=== PATIENT | female | born 1940 | race Caucasian/White ===

== ENCOUNTER → 2016-06-15 | Outpatient (CLI) | payer OTHER, MEDICAID ==
[~2016-06-15] MED LIST: /NITR4TASL SL; /PRAV20TA PO; ASPI81TA85 PO; CIPR500T89 PO; CORE25TA PO; FLAG500T PO; KLOR20PO PO; LOSA100T36 PO; MAGN-46 PO; OMEP40CA2 PO; POTA20TA PO; TRAV04OPD OD; TYLE650T25 PO; VITA10006 PO; VITAMIN D 3 PO
--- NOTE | 2016-06-15 10:09 | REP ---
BILATERAL MAMMOGRAM: Bilateral mammography performed in the MLO and CC projections and compared to prior studies, the most recent of which is 10/08/2014. There is a history of left breast cancer at age 54. There is also a history of breast cancer in the mother. A new 1 cm ill-defined nodular opacity in the lateral aspect of the right breast. Fibroglandular pattern is otherwise unchanged. No other new mass is seen and there is no architectural distortion. No clustered microcalcifications are seen. IMPRESSION: ACR 0 incomplete. There appears to be a new ill-defined nodular density 1 cm in diameter in the lateral right breast. Recommend spot compression views and ultrasound to further evaluate. BI-RADS/ACR category 0 mammogram, incomplete. Additional imaging and/or prior images are needed before a final assessment can be assigned. This mammogram was interpreted with the aid of an FDA-approved computer-aided detection system. The patient states that she/he has not had a clinical breast exam in over a year. Patient letter M0.
--- NOTE | 2016-06-17 09:41 | DEXA ---
AP SPINE L1 - L4 1.035 -1.3 0.0 LT FEMUR TOTAL 0.751 -2.0 -0.6 RT FEMUR TOTAL 0.762 -1.9 -0.6 TOTAL BODY TOTAL OTHER DUAL FEMUR FRAX* ASSESSMENT Risk factors: History of fracture as an adult. 10 year probability of fracture Major osteoporotic fracture 18.4 % Hip fracture 4.0 % COMMENTS: There is low bone density of the spine and hips. FOLLOW-UP: Recommendation for the next bone density exam: 2 years. FCO
== END ==
LOC: M WHC 08:03
PROVIDERS: ATTEND Nurse Practitioner Adult Health
DX: Z12.31 Encounter for screening mammogram for malignant neoplasm of breast (principal); R92.8 Other abnormal and inconclusive findings on diagnostic imaging of breast; Z85.3 Personal history of malignant neoplasm of breast; Z80.3 Family history of malignant neoplasm of breast; M81.0 Age-related osteoporosis without current pathological fracture
CPT/HCPCS: 77080; G0202

== ENCOUNTER 2016-06-16 20:52 | Emergency (ER) | payer OTHER, MEDICAID ==
[2016-06-16] MEDS ORDERED: NORCO 5/325MG TABLET (BULK) As Ordered ONE (22:39)
--- NOTE | 2016-06-16 23:01 | EDDOCDS ---
Physician Documentation [facility] Name: Melany Molina Age: 75 yrs Sex: Female : 1940 Arrival Date: 06/16/2016 Time: 20:52 Bed 15 Private MD: Loida Tejada L Disposition: 06/16/16 22:30 Discharged to Home/Self Care. Impression: Fracture of lower end of radius. - Condition is Stable. - Medication Reconciliation, Local Pharmacy Hours form. - Follow up: Bruce Hodges; When: Tomorrow; Reason: Recheck today's complaints, To establish care. - Problem is new. - Symptoms have improved. Historical: - Allergies: No known drug Allergies; - Home Meds: 1. losartan 25 mg oral tab 1 tab once daily 2. aspirin 81 mg Oral TbEC 1 tab once daily 3. pravastatin Unknown oral 4. metoprolol tartrate 25 mg Oral tab 1 tab once daily - PMHx: Glaucoma; Cataracts; Hypercholesterolemia; Cardiomyopathy; Hypertension; Cancer, Breast - Left; - PSHx: Tonsillectomy; Hysterectomy; Lumpectomy- Left; lymph node removal; Cataract Surgery- Left; - Social history: Smoking status: Patient states former smoker of tobacco. No barriers to communication noted, The patient speaks fluent Malaysian, Speaks appropriately for age. - Family history: No immediate family members are acutely ill. - : The pt / caregiver states he / she is not on anticoagulants. Home medication list is obtained from the patient. - Exposure Risk Screening:: None identified. Vital Signs: 06/16 21:05 BP 118 / 72 RA Supine (auto/reg); Pulse 60 RA; Resp 18; Temp 99.2(O); Pulse Ox 92% on tk R/A; Weight 77.56 kg / 170.99 lbs; Height 5 ft. 3 in. (160.02 cm); Pain 6/10; 22:55 BP 159 / 80; Pulse 62; Resp 18; Temp 98.1(TE); Pulse Ox 95% on R/A; Pain 7/10; nn1 21:05 Body Mass Index 30.29 (77.56 kg, 160.02 cm) tk Procedures: 22:28 Fracture care/splinting: (Stabilizing Care) Splint applied to left arm using Orthoglass cs11 splint, applied by myself. Examined by me, post splint application: neurovascular intact, 2+ distal pulses palpable, brisk capillary refill noted, Patient tolerated well. 22:28 Fracture care/splinting: Reverse sugar tong splint fabricated and applied.. cs11 MDM: 21:17 Forearm (radius/ulna) Ordered. EDMS 22:31 HYDROcodone-acetaminophen 4 pack- 5 mg-325 mg 1 packets PO Per package directions; cs11 Dispense with patient. 1 po q4h prn for pain ordered. 22:51 Financial registration complete. zo Administered Medications: 22:54 Drug: HYDROcodone-acetaminophen 4 pack- 1 packets [hydrocodone 5 mg-acetaminophen 325 nn1 mg tablet (1 tabs)] {Co-Signature: kiley (Belen Ch RN).} Route: PO; Signatures: Dispatcher [employer] EDMS Shaan Eddy Craig, DO DO cs11 Emelina Ly RN RN nn1 Belen romero2 MTDD
--- NOTE | 2016-06-16 23:01 | EDDOCDS ---
Nurse's Notes [facility] Name: Melany Molina Age: 75 yrs Sex: Female : 1940 Arrival Date: 06/16/2016 Time: 20:52 Bed 15 Private MD: Loida Tejada L Diagnosis: Fracture of lower end of radius Presentation: 06/16 20:54 Presenting complaint: EMS states: patient was walking on side walk, fell. Obvious nn1 deformity left wrist. Patient given 4mg morphine and 4mg zofran. BS 127. IV 20G right wrist. Hx of left side breast cancer. Adult Sepsis Screening: The patient does not have new or worsening altered mentation. Patient's respiratory rate is less than 22. Systolic blood pressure is greater than 100. Patient has a qSOFA score of 0- Negative Sepsis Screen. Suicide/Homicide risk assessment- the patient denies having any suicidal and/or homicidal ideations and does not present with any other emotional, behavioral or mental health complaints. Status: Patient is not a information services manager or dependent. Transition of care: patient was not received from another setting of care. 20:54 Acuity: LAUREN Level 3 nn1 20:54 Method Of Arrival: Ambulance nn1 Triage Assessment: 21:09 General: Appears in no apparent distress, comfortable, Behavior is appropriate for age, nn1 cooperative. Pain: Location: left wrist Pain currently is 7 out of 10 on a pain scale. The patient is triaged at the bedside. See Assessment in Nurses Notes section of ED record. Neurological: Level of Consciousness is awake, alert, obeys commands, Oriented to person, place, time. Respiratory: Airway is patent Respiratory effort is even, unlabored, Respiratory pattern is regular, symmetrical. Derm: Skin is pink, warm & dry. Swollen area noted on lateral aspect of left wrist and medial aspect of left wrist. Musculoskeletal: Circulation, motion, and sensation intact Capillary refill < 3 seconds Range of motion limited in left wrist Bony deformity noted of left wrist Swelling present in left wrist. Injury Description: pt fell from standing. Historical: - Allergies: No known drug Allergies; - Home Meds: 1. losartan 25 mg oral tab 1 tab once daily 2. aspirin 81 mg Oral TbEC 1 tab once daily 3. pravastatin Unknown oral 4. metoprolol tartrate 25 mg Oral tab 1 tab once daily - PMHx: Glaucoma; Cataracts; Hypercholesterolemia; Cardiomyopathy; Hypertension; Cancer, Breast - Left; - PSHx: Tonsillectomy; Hysterectomy; Lumpectomy- Left; lymph node removal; Cataract Surgery- Left; - Social history: Smoking status: Patient states former smoker of tobacco. No barriers to communication noted, The patient speaks fluent Prydeinig, Speaks appropriately for age. - Family history: No immediate family members are acutely ill. - : The pt / caregiver states he / she is not on anticoagulants. Home medication list is obtained from the patient. - Exposure Risk Screening:: None identified. Screenin:12 Screening information is obtained from the patient. Fall risk: At risk due to prior nn1 history of falls. Assistance ADL's: requires no assistance with activities of daily living. Abuse/DV Screen: The patient / caregiver reports he/she is: not in a situation that causes fear, pain or injury. Nutritional screening: No deficits noted. Advance Directives: Currently, there is a health care proxy, Annalisa Emery- sister in law; Kushal Emery- brother. home support is adequate. Assessment: 21:11 General: See triage assessment. Patient reports having dinner at 1900. . nn1 21:54 General: Patient to radiology. . nn1 22:16 General: Appears in no apparent distress, comfortable, Behavior is appropriate for age, nn1 cooperative. Neurological: Level of Consciousness is awake, alert, obeys commands. Respiratory: Airway is patent Respiratory effort is even, unlabored. Derm: Skin is pink, warm & dry. 22:54 General: Appears in no apparent distress, comfortable, Behavior is appropriate for age, nn1 cooperative. Pain: Pain currently is 7 out of 10 on a pain scale. Neurological: Level of Consciousness is awake, alert. Respiratory: Airway is patent Respiratory effort is even, unlabored. Derm: Skin is pink, warm & dry. Swollen area noted on left wrist. Musculoskeletal: Bony deformity noted of left wrist. Vital Signs: 21:05 BP 118 / 72 RA Supine (auto/reg); Pulse 60 RA; Resp 18; Temp 99.2(O); Pulse Ox 92% on tk R/A; Weight 77.56 kg; Height 5 ft. 3 in. (160.02 cm); Pain 6/10; 22:55 BP 159 / 80; Pulse 62; Resp 18; Temp 98.1(TE); Pulse Ox 95% on R/A; Pain 7/10; nn1 21:05 Body Mass Index 30.29 (77.56 kg, 160.02 cm) tk Vitals: 20:54 Log In Time N/A - ambulance arrival. nn1 ED Course: 20:53 Patient visited by Modesta Sam PCA. tmm1 20:53 Loida Tejada is Private Physician. tmm1 20:53 Patient moved to 15 tmm1 20:56 Grover Cheng DO is Attending Physician. cs11 20:56 Patient visited by Grover Cheng DO. cs11 21:00 Triage Initiated nn1 21:07 Patient visited by Glenroy Hart. tk 21:28 Maintain field IV. Site clean & dry. Gauge & site: 20G right forearm. IV is patent. nn1 21:58 Patient visited by Emelina Ly RN. nn1 22:29 Bruce Hodges is Referral Physician. cs11 22:37 Assist provider with fracture care of left wrist Obvious deformity is noted. nn1 Circulation, motor and sensation is intact. Immoblized with preformed splint, Performed by Grover Cheng DO Post immobilization, circulation, motor and sensation remain intact. Patient tolerated well. Sling applied to left arm. Patient with positive distal sensation and brisk distal capillary refill after application. 22:56 The patient / caregiver is instructed regarding the plan of care and ED course. nn1 22:56 Discontinued IV bleeding controlled, pressure dressing applied, No redness/swelling at nn1 site. Administered Medications: 22:54 Drug: HYDROcodone-acetaminophen 4 pack- 1 packets [hydrocodone 5 mg-acetaminophen 325 nn1 mg tablet (1 tabs)] {Co-Signature: [email or web address] (Belen Ch RN).} Route: PO; Order Results: There are currently no results for this order. Outcome: 22:30 Discharge ordered by Provider. cs11 22:55 Discharge Assessment: Patient awake, alert and oriented x 3. No cognitive and/or nn1 functional deficits noted. Patient verbalized understanding of disposition instructions. patient administered narcotics - yes. Pt provided with safe discharge. The following High Risk Discharge criteria are identified: None. Discharged to home ambulatory. Condition: stable. No special radiology studies were completed. Property :Personal belongings accompany Pt. 23:01 Patient left the ED. nn1 Signatures: Grover Cheng DO DO cs11 McLear, Modesta, INTERVENTIONAL TECHNOLOGIST INTERVENTIONAL TECHNOLOGIST tmm1 Emelina LyRN RN nn1 Glenroy Hart RN kas2 Corrections: (The following items were deleted from the chart) 21:55 21:54 General: Patient to radiation. . nn1 nn1 MTDD
--- NOTE | 2016-06-19 00:01 | EDDOCDS ---
Physician Documentation [facility] Name: Melany Molina Age: 75 yrs Sex: Female : 1940 Arrival Date: 06/16/2016 Time: 20:52 Bed 15 Private MD: Loida Tejada L Disposition: 06/16/16 22:30 Discharged to Home/Self Care. Impression: Fracture of lower end of radius. - Condition is Stable. - Medication Reconciliation, Local Pharmacy Hours form. - Follow up: Bruce Hodges; When: Tomorrow; Reason: Recheck today's complaints, To establish care. - Problem is new. - Symptoms have improved. Historical: - Allergies: No known drug Allergies; - Home Meds: 1. losartan 25 mg oral tab 1 tab once daily 2. aspirin 81 mg Oral TbEC 1 tab once daily 3. pravastatin Unknown oral 4. metoprolol tartrate 25 mg Oral tab 1 tab once daily - PMHx: Glaucoma; Cataracts; Hypercholesterolemia; Cardiomyopathy; Hypertension; Cancer, Breast - Left; - PSHx: Tonsillectomy; Hysterectomy; Lumpectomy- Left; lymph node removal; Cataract Surgery- Left; - Social history: Smoking status: Patient states former smoker of tobacco. No barriers to communication noted, The patient speaks fluent Salvadorean, Speaks appropriately for age. - Family history: No immediate family members are acutely ill. - : The pt / caregiver states he / she is not on anticoagulants. Home medication list is obtained from the patient. - Exposure Risk Screening:: None identified. Vital Signs: 06/16 21:05 BP 118 / 72 RA Supine (auto/reg); Pulse 60 RA; Resp 18; Temp 99.2(O); Pulse Ox 92% on tk R/A; Weight 77.56 kg / 170.99 lbs; Height 5 ft. 3 in. (160.02 cm); Pain 6/10; 22:55 BP 159 / 80; Pulse 62; Resp 18; Temp 98.1(TE); Pulse Ox 95% on R/A; Pain 7/10; nn1 21:05 Body Mass Index 30.29 (77.56 kg, 160.02 cm) tk Procedures: 22:28 Fracture care/splinting: (Stabilizing Care) Splint applied to left arm using Orthoglass cs11 splint, applied by myself. Examined by me, post splint application: neurovascular intact, 2+ distal pulses palpable, brisk capillary refill noted, Patient tolerated well. 22:28 Fracture care/splinting: Reverse sugar tong splint fabricated and applied.. cs11 MDM: 21:17 Forearm (radius/ulna) Ordered. EDMS 22:31 HYDROcodone-acetaminophen 4 pack- 5 mg-325 mg 1 packets PO Per package directions; cs11 Dispense with patient. 1 po q4h prn for pain ordered. 22:51 Financial registration complete. zo 23:36 [facility] Payment Agreement was scanned into [employer] and attached to record. zo 06/17 06:59 T-Sheet-- Draft Copy was scanned into [employer] and attached to record. gb Administered Medications: 06/16 22:54 Drug: HYDROcodone-acetaminophen 4 pack- 1 packets [hydrocodone 5 mg-acetaminophen 325 nn1 mg tablet (1 tabs)] {Co-Signature: [email or web address] (Belen Ch RN).} Route: PO; Signatures: Dispatcher [employer] EDMS Yuridia Keller, Reg Reg gb Surjit, Grover Brewer, DO cs11 Emelina Ly RN RN nn1 Belen Ch RN kas2 The chart was reviewed and I authenticate all verbal orders and agree with the evaluation and treatment provided.Attachments: 23:36 [facility] Payment Agreement zo 06/17 06:59 T-Sheet-- Draft Copy gb Chart Complete MTDD
--- NOTE | 2016-06-19 00:01 | EDDOCDS ---
Physician Documentation [facility] Name: Melany Molina Age: 75 yrs Sex: Female : 1940 Arrival Date: 06/16/2016 Time: 20:52 Bed 15 Private MD: Loida Tejada L Disposition: 06/16/16 22:30 Discharged to Home/Self Care. Impression: Fracture of lower end of radius. - Condition is Stable. - Medication Reconciliation, Local Pharmacy Hours form. - Follow up: Bruce Hodges; When: Tomorrow; Reason: Recheck today's complaints, To establish care. - Problem is new. - Symptoms have improved. Historical: - Allergies: No known drug Allergies; - Home Meds: 1. losartan 25 mg oral tab 1 tab once daily 2. aspirin 81 mg Oral TbEC 1 tab once daily 3. pravastatin Unknown oral 4. metoprolol tartrate 25 mg Oral tab 1 tab once daily - PMHx: Glaucoma; Cataracts; Hypercholesterolemia; Cardiomyopathy; Hypertension; Cancer, Breast - Left; - PSHx: Tonsillectomy; Hysterectomy; Lumpectomy- Left; lymph node removal; Cataract Surgery- Left; - Social history: Smoking status: Patient states former smoker of tobacco. No barriers to communication noted, The patient speaks fluent Maltese, Speaks appropriately for age. - Family history: No immediate family members are acutely ill. - : The pt / caregiver states he / she is not on anticoagulants. Home medication list is obtained from the patient. - Exposure Risk Screening:: None identified. Vital Signs: 06/16 21:05 BP 118 / 72 RA Supine (auto/reg); Pulse 60 RA; Resp 18; Temp 99.2(O); Pulse Ox 92% on tk R/A; Weight 77.56 kg / 170.99 lbs; Height 5 ft. 3 in. (160.02 cm); Pain 6/10; 22:55 BP 159 / 80; Pulse 62; Resp 18; Temp 98.1(TE); Pulse Ox 95% on R/A; Pain 7/10; nn1 21:05 Body Mass Index 30.29 (77.56 kg, 160.02 cm) tk Procedures: 22:28 Fracture care/splinting: (Stabilizing Care) Splint applied to left arm using Orthoglass cs11 splint, applied by myself. Examined by me, post splint application: neurovascular intact, 2+ distal pulses palpable, brisk capillary refill noted, Patient tolerated well. 22:28 Fracture care/splinting: Reverse sugar tong splint fabricated and applied.. cs11 MDM: 21:17 Forearm (radius/ulna) Ordered. EDMS 22:31 HYDROcodone-acetaminophen 4 pack- 5 mg-325 mg 1 packets PO Per package directions; cs11 Dispense with patient. 1 po q4h prn for pain ordered. 22:51 Financial registration complete. zo 23:36 [facility] Payment Agreement was scanned into [employer] and attached to record. zo 06/17 06:59 T-Sheet-- Draft Copy was scanned into [employer] and attached to record. gb Administered Medications: 06/16 22:54 Drug: HYDROcodone-acetaminophen 4 pack- 1 packets [hydrocodone 5 mg-acetaminophen 325 nn1 mg tablet (1 tabs)] {Co-Signature: [email or web address] (Belen Ch RN).} Route: PO; Signatures: Dispatcher [employer] EDMS Yuridia Keller, Reg Reg gb Surjit, Grover Brewer, DO cs11 Emelina Ly RN RN nn1 Belen Ch RN kas2 The chart was reviewed and I authenticate all verbal orders and agree with the evaluation and treatment provided.Attachments: 23:36 [facility] Payment Agreement zo 06/17 06:59 T-Sheet-- Draft Copy gb Chart Complete MTDD
--- NOTE | 2016-06-19 00:01 | EDDOCDS ---
Nurse's Notes [facility] Name: Melany Molina Age: 75 yrs Sex: Female : 1940 Arrival Date: 06/16/2016 Time: 20:52 Bed 15 Private MD: Loida Tejada L Diagnosis: Fracture of lower end of radius Presentation: 06/16 20:54 Presenting complaint: EMS states: patient was walking on side walk, fell. Obvious nn1 deformity left wrist. Patient given 4mg morphine and 4mg zofran. BS 127. IV 20G right wrist. Hx of left side breast cancer. Adult Sepsis Screening: The patient does not have new or worsening altered mentation. Patient's respiratory rate is less than 22. Systolic blood pressure is greater than 100. Patient has a qSOFA score of 0- Negative Sepsis Screen. Suicide/Homicide risk assessment- the patient denies having any suicidal and/or homicidal ideations and does not present with any other emotional, behavioral or mental health complaints. Status: Patient is not a food service ambassador or dependent. Transition of care: patient was not received from another setting of care. 20:54 Acuity: LAUREN Level 3 nn1 20:54 Method Of Arrival: Ambulance nn1 Triage Assessment: 21:09 General: Appears in no apparent distress, comfortable, Behavior is appropriate for age, nn1 cooperative. Pain: Location: left wrist Pain currently is 7 out of 10 on a pain scale. The patient is triaged at the bedside. See Assessment in Nurses Notes section of ED record. Neurological: Level of Consciousness is awake, alert, obeys commands, Oriented to person, place, time. Respiratory: Airway is patent Respiratory effort is even, unlabored, Respiratory pattern is regular, symmetrical. Derm: Skin is pink, warm & dry. Swollen area noted on lateral aspect of left wrist and medial aspect of left wrist. Musculoskeletal: Circulation, motion, and sensation intact Capillary refill < 3 seconds Range of motion limited in left wrist Bony deformity noted of left wrist Swelling present in left wrist. Injury Description: pt fell from standing. Historical: - Allergies: No known drug Allergies; - Home Meds: 1. losartan 25 mg oral tab 1 tab once daily 2. aspirin 81 mg Oral TbEC 1 tab once daily 3. pravastatin Unknown oral 4. metoprolol tartrate 25 mg Oral tab 1 tab once daily - PMHx: Glaucoma; Cataracts; Hypercholesterolemia; Cardiomyopathy; Hypertension; Cancer, Breast - Left; - PSHx: Tonsillectomy; Hysterectomy; Lumpectomy- Left; lymph node removal; Cataract Surgery- Left; - Social history: Smoking status: Patient states former smoker of tobacco. No barriers to communication noted, The patient speaks fluent Malaysian, Speaks appropriately for age. - Family history: No immediate family members are acutely ill. - : The pt / caregiver states he / she is not on anticoagulants. Home medication list is obtained from the patient. - Exposure Risk Screening:: None identified. Screenin:12 Screening information is obtained from the patient. Fall risk: At risk due to prior nn1 history of falls. Assistance ADL's: requires no assistance with activities of daily living. Abuse/DV Screen: The patient / caregiver reports he/she is: not in a situation that causes fear, pain or injury. Nutritional screening: No deficits noted. Advance Directives: Currently, there is a health care proxy, Annalisa Emery- sister in law; Kushal Emery- brother. home support is adequate. Assessment: 21:11 General: See triage assessment. Patient reports having dinner at 1900. . nn1 21:54 General: Patient to radiology. . nn1 22:16 General: Appears in no apparent distress, comfortable, Behavior is appropriate for age, nn1 cooperative. Neurological: Level of Consciousness is awake, alert, obeys commands. Respiratory: Airway is patent Respiratory effort is even, unlabored. Derm: Skin is pink, warm & dry. 22:54 General: Appears in no apparent distress, comfortable, Behavior is appropriate for age, nn1 cooperative. Pain: Pain currently is 7 out of 10 on a pain scale. Neurological: Level of Consciousness is awake, alert. Respiratory: Airway is patent Respiratory effort is even, unlabored. Derm: Skin is pink, warm & dry. Swollen area noted on left wrist. Musculoskeletal: Bony deformity noted of left wrist. Vital Signs: 21:05 BP 118 / 72 RA Supine (auto/reg); Pulse 60 RA; Resp 18; Temp 99.2(O); Pulse Ox 92% on tk R/A; Weight 77.56 kg; Height 5 ft. 3 in. (160.02 cm); Pain 6/10; 22:55 BP 159 / 80; Pulse 62; Resp 18; Temp 98.1(TE); Pulse Ox 95% on R/A; Pain 7/10; nn1 21:05 Body Mass Index 30.29 (77.56 kg, 160.02 cm) tk Vitals: 20:54 Log In Time N/A - ambulance arrival. nn1 ED Course: 20:53 Patient visited by Modesta Sam PCA. tmm1 20:53 Loida Tejada is Private Physician. tmm1 20:53 Patient moved to 15 tmm1 20:56 Grover Cheng DO is Attending Physician. cs11 20:56 Patient visited by Grover Cheng DO. cs11 21:00 Triage Initiated nn1 21:07 Patient visited by Glenroy Hart. tk 21:28 Maintain field IV. Site clean & dry. Gauge & site: 20G right forearm. IV is patent. nn1 21:58 Patient visited by Emelina Ly RN. nn1 22:29 Bruce Hodges is Referral Physician. cs11 22:37 Assist provider with fracture care of left wrist Obvious deformity is noted. nn1 Circulation, motor and sensation is intact. Immoblized with preformed splint, Performed by Grover Cheng DO Post immobilization, circulation, motor and sensation remain intact. Patient tolerated well. Sling applied to left arm. Patient with positive distal sensation and brisk distal capillary refill after application. 22:56 The patient / caregiver is instructed regarding the plan of care and ED course. nn1 22:56 Discontinued IV bleeding controlled, pressure dressing applied, No redness/swelling at nn1 site. 23:36 [facility] Payment Agreement was scanned into [employer] and attached to record. zo 06/17 06:59 T-Sheet-- Draft Copy was scanned into [employer] and attached to record. gb Administered Medications: 06/16 22:54 Drug: HYDROcodone-acetaminophen 4 pack- 1 packets [hydrocodone 5 mg-acetaminophen 325 nn1 mg tablet (1 tabs)] {Co-Signature: [email or web address] (Belen Ch RN).} Route: PO; Order Results: There are currently no results for this order. Outcome: 22:30 Discharge ordered by Provider. cs11 22:55 Discharge Assessment: Patient awake, alert and oriented x 3. No cognitive and/or nn1 functional deficits noted. Patient verbalized understanding of disposition instructions. patient administered narcotics - yes. Pt provided with safe discharge. The following High Risk Discharge criteria are identified: None. Discharged to home ambulatory. Condition: stable. No special radiology studies were completed. Property :Personal belongings accompany Pt. 23:01 Patient left the ED. nn1 Signatures: Yuridia Keller, Reg Reg gb Shaan Eddy Craig, DO cs11 McLear, Modesta, FEED PREPARATION OPERATOR FEED PREPARATION OPERATOR tmm1 Emelina LyRN RN nn1 Glenroy Hart RN kas2 Corrections: (The following items were deleted from the chart) 21:55 21:54 General: Patient to radiation. . nn1 nn1 Chart Complete MTDD
--- NOTE | 2016-06-23 10:38 | REP ---
Clinical: Trauma. Technique: AP, lateral views of the left forearm. Impression: There is a comminuted Colles' fracture of the distal radial metaphysis with posterior angulation and disruption of the articular surface. Underlying osteopenia and degenerative changes to the wrist appreciated. Impression: Comminuted Colles' fracture of the distal radial metaphysis. Signed by Yuri Hannah MD 06/23/2016 10:29 A
== END 2016-06-16 23:01 | disposition home or self-care (01) ==
LOC: M ED 20:52
DX: S52.532A Colles' fracture of left radius, initial encounter for closed fracture (principal); W00.9XXA Unspecified fall due to ice and snow, initial encounter; Y92.410 Unspecified street and highway as the place of occurrence of the external cause; Y93.89 Activity, other specified; Y99.8 Other external cause status; L40.9 Psoriasis, unspecified; H26.9 Unspecified cataract; E78.00 Pure hypercholesterolemia, unspecified; I10 Essential (primary) hypertension; I42.9 Cardiomyopathy, unspecified; Z85.3 Personal history of malignant neoplasm of breast; Z90.79 Acquired absence of other genital organ(s); Z90.89 Acquired absence of other organs; Z87.891 Personal history of nicotine dependence; Z79.82 Long term (current) use of aspirin; Z79.899 Other long term (current) drug therapy

== ENCOUNTER → 2016-06-30 | Outpatient (CLI) | payer OTHER, MEDICAID ==
--- NOTE | 2016-06-30 15:28 | REP ---
DIGITAL DIAGNOSTIC UNILATERAL RIGHT BREAST MAMMOGRAM WITH CAD AND FOCUSED RIGHT BREAST SONOGRAPHY: HISTORY: Screening mammography from 06/15/2016 was BIRADS category 0 because of an ill-defined nodular density in the lateral right breast. Diagnostic imaging was recommended. FINDINGS: Magnified focal spot compression CC, MLO and true MLO views confirm the presence of a ill-defined somewhat spiculated appearing irregular 1 cm density in the lateral aspect of the right breast at approximately 3 o'clock position. It is not well seen on MLO or MLO views but is best seen on the craniocaudad view. SONOGRAPHIC FINDINGS: The right breast is scanned from 8 o'clock position to 12 o'clock position. At 10 o'clock position, there is a 4 mm cyst 5 mm from the nipple. At 9 o'clock position, there is a hypoechoic irregular lobulated mass measuring 1.0 x 0.8 x 1.1 cm 2.2 cm from the nipple. This is felt to account for the mammographic opacity and is sonographically suspicious with acoustic shadowing. There is a 7 mm cyst at 12 o'clock position 2.4 cm from the nipple. IMPRESSION: BIRADS category V highly suspicious right breast imaging. Somewhat spiculated 1 cm lesion at the 9 o'clock position in the right breast by mammography and sonography. Ultrasound-guided needle biopsy, marker clip placement, and post biopsy mammography recommended. BI-RADS/ACR category 5 mammogram. Highly suggestive of malignancy - appropriate action should be taken. Requires biopsy or surgical treatment. This mammogram was interpreted with the aid of an FDA-approved computer-aided detection system. The patient states that she/he has not had a clinical breast exam in over a year. The patient letter being requested is M4 . Signed by Brad Mcintyre MD 06/30/2016 04:20 P
== END ==
LOC: M RAD 12:15
PROVIDERS: ATTEND Nurse Practitioner Adult Health
DX: R92.2 Inconclusive mammogram (principal)
CPT/HCPCS: 76642; G0206

== ENCOUNTER → 2016-07-13 | Outpatient (CLI) | payer OTHER, MEDICAID ==
[~2016-07-13] MED LIST changes: +LIDOCAINE 1% MDV 20ML VIAL As Ordered ONE
--- NOTE | 2016-07-13 11:14 | REP ---
Digital diagnostic unilateral right breast mammography: History: Marker clip placement views. The patient status post ultrasound-guided needle biopsy of the right breast for an irregular hypoechoic mass. Mammography from June 30, 2016 showed an area of spiculation in the right lateral breast. Mammographic findings: The marker clip is in good position relative to the area of spiculation indicating mammographic and sonographic correlation for the suspicious finding. There is some post biopsy swelling. No evelin hematoma. Impression: Marker clip in good position in the right lateral mid breast at the mammographically suspicious finding. This mammogram was interpreted with the aid of an FDA-approved computer-aided detection system. Signed by Brad Mcintyre MD 07/13/2016 02:23 P
--- NOTE | 2016-07-13 16:17 | REP ---
ULTRASOUND GUIDED RIGHT BREAST BIOPSY: The procedure was performed under the direct supervision of Dr. Mcintyre. The patient has a history of an irregular lobulated mass measuring 1.0 x 0.8 x 1.1 cm at the 9-o'clock position of the right breast seen on the previous ultrasound dated 06/30/2016. The risks and benefits of the procedure were explained to the patient and informed consent was obtained. The right breast mass was localized using ultrasound guidance. The skin was prepped and draped in a sterile fashion. 1% Xylocaine was used as a local anesthetic. Using ultrasound guidance a 13-gauge suction-assisted Mammotome needle was inserted and 6 core biopsy samples were obtained. A marker clip was placed at the biopsy site. The patient tolerated the procedure well and there were no immediate complications. After the appropriate amount of monitored convalescence the patient was discharged from the department. Reviewed by REYNA Finn 07/14/2016 08:28 AEdited and Signed by Brad Mcintyre MD 07/14/2016 09:56 A
== END ==
LOC: M RADPRO 09:34
PROVIDERS: ATTEND Nurse Practitioner Adult Health
DX: C50.911 Malignant neoplasm of unspecified site of right female breast (principal)
CPT/HCPCS: 19083; 88305; G0206

== ENCOUNTER → 2016-07-21 | Outpatient (CLI) | payer OTHER, MEDICAID ==
[~2016-07-21] MED LIST changes: -LIDOCAINE 1% MDV 20ML VIAL As Ordered ONE
--- NOTE | 2016-07-21 16:49 | REP ---
Left upper extremity duplex venous ultrasound: History: Left arm swelling, the patient status post wrist fracture. Findings: The left internal jugular, axillary, brachial, basilic, and cephalic veins are anechoic and compressible in the left upper extremity. Color flow imaging is homogeneous. Spectral Doppler interrogation is unremarkable. There is no evidence of left upper extremity venous thrombosis. Impression: Negative left upper extremity duplex venous ultrasound. No evidence of venous thrombosis. Signed by Brad Mcintyre MD 07/21/2016 04:51 P
== END ==
LOC: M RAD 15:09
PROVIDERS: ATTEND Nurse Practitioner Adult Health
DX: M79.602 Pain in left arm (principal); M79.89 Other specified soft tissue disorders

== ENCOUNTER → 2016-08-13 | Outpatient (CLI) | payer OTHER, MEDICAID ==
[~2016-08-13] MED LIST changes: +ASPI1TAB PO; +METO-209 PO; +NEXI40CA PO; +OMEGA Q PLUS PO; +PRAV20TA2 PO; +TYLE500T78 PO; +VITA100037 PO; +VITAPOW PO
--- NOTE | 2016-08-14 07:26 | REP ---
CHEST, TWO VIEWS: Two views of the chest are performed and compared to prior study of 04/28/2015. There is mild bibasilar fibrotic change which is stable. Heart is upper limits of normal in size. There is calcification and tortuosity of the thoracic aorta. The mediastinal silhouette is unchanged. There is curvature of the thoracic spine convex to the right with degenerative changes. IMPRESSION: Stable chronic findings. No acute pulmonary disease. Signed by Klaus Peralta MD 08/14/2016 01:53 P
== END ==
LOC: M RAD 14:31
PROVIDERS: ATTEND Nurse Practitioner Adult Health
DX: I50.22 Chronic systolic (congestive) heart failure (principal)

== ENCOUNTER → 2016-08-16 | Day surgery (SDC) | payer OTHER, MEDICAID ==
[~2016-08-16] VITALS: Ht 162.6 cm; Wt 77.1 kg
[~2016-08-16] MED LIST changes: +BUPIVACAINE HCL 0.25% 30 ML VIAL As Ordered ONE; +GLYCOPYRROLATE INJ 0.2 MG/ML 2 ML VIAL As Ordered ONE; +HYDROmorphone HCL 2 MG/ML 1ML VIAL (J1170) As Ordered ONE; +LIDOCAINE 1% MDV 20ML VIAL As Ordered ONE; +LIDOCAINE 2% INJ 100 MG/5 ML SDV (FOR ANES.) As Ordered ONE; +LIDOCAINE 5% (LIDODERM) PATCH TD ONE; +LR 1,000 ML IV SCH; +METHYLENE BLUE 0.5% (5MG/ML) 10 ML AMP (PROVAYBLUE)(Q9968 PER 1MG) As Ordered ONE; +METOCLOPRAMIDE INJ 10MG/2ML VIAL (J2765) IV PRN; +MIDAZOLAM INJ 2 MG/2 ML VIAL (J2250) As Ordered ONE; +MORPHINE 2 MG/ML 1ML SYRINGE IV PRN; +NEOSTIGMINE 1MG/ML 5 ML SYRINGE (J2710) As Ordered ONE; +NORCO, ANEXSIA 5/325MG TABLET (HYDROcodone/ACETAMINOPHEN) PO PRN; +ONDANSETRON 4MG/2ML VIAL (J2405) As Ordered ONE; +ONDANSETRON 4MG/2ML VIAL (J2405) IV PRN; +PERCOCET 5MG/325MG TAB PO PRN; +PROPOFOL 200 MG/20 ML VIAL As Ordered ONE; +ROCURONIUM BROMIDE 50 MG/5 ML VIAL As Ordered ONE; +dexameTHASONE 4 MG/ML 1ML VIAL (J1100) As Ordered ONE; +ePHEDrine SULFATE 25 MG/5 ML(5MG/ML) SYRINGE As Ordered ONE; +fentaNYL 100 MCG/2 ML INJECTION (J3010) IV PRN; +fentaNYL 250 MCG/5 ML INJECTION (J3010) As Ordered ONE
--- NOTE | 2016-08-16 13:33 | REP ---
RIGHT BREAST LYMPHOSCINTIGRAPHY: The procedure was performed under the direct supervision of Dr. Peralta. The images were reviewed with Dr. Peralta. Using topical anesthetic and sterile technique 1.007 mCi of technetium-99 filtered sulfur colloid was injected subdermally in eight fractioned periareolar injections. Images obtained 1 hour after injection show two dominant foci of uptake in the axillary region on the right. IMPRESSION: Right breast lymphoscintigraphy. Reviewed by REYNA Finn 08/16/2016 04:34 PEdited and Signed by Klaus Peralta MD 08/16/2016 08:04 P
--- NOTE | 2016-08-16 14:43 | REP ---
RIGHT BREAST LOCALIZATION: The procedure was performed under the direct supervision of Dr. Peralta. The patient has a history of an irregular lobulated mass measuring 1.0 x 0.8 x 1.1 cm at the 9 o'clock position of the right breast seen on a previous ultrasound dated 06/30/2016. The patient had an ultrasound guided right breast biopsy performed on 07/13/2016. A marker clip was placed at the biopsy site. The risks and benefits of the procedure were explained to the patient and informed consent was obtained. A lateral medial approach was utilized. The marker clip was localized utilized mammographic guidance. The skin was prepped and draped in a sterile fashion. 1% xylocaine was used as a local anesthetic. A 5 cm [place] needle wire system was inserted. Followup mammographic images demonstrate good needle placement. The patient tolerated the procedure well and there were no immediate complications. Reviewed by REYNA Finn 08/16/2016 04:35 PEdited and Signed by Klaus Peralta MD 08/16/2016 08:04 P
[2016-08-16 21:25] VITALS: BP 148/72
--- NOTE | 2016-08-17 08:50 | REP ---
SPECIMEN RADIOGRAPH: Radiograph performed of surgical specimen following needle localization and excisional biopsy. The metallic marking clip is seen within the specimen. Signed by Klaus Peralta MD 08/17/2016 10:13 A
--- NOTE | 2016-08-19 18:01 | RO ---
DATE OF PROCEDURE: 08/16/2016 PREOPERATIVE DIAGNOSIS: Right breast carcinoma. POSTOPERATIVE DIAGNOSIS: Right breast carcinoma. PROCEDURES PERFORMED: 1. [place] node biopsy right breast. 2. Right partial mastectomy with needle localization. SURGEON: Dr. Remigio Villegas BUDGET REPORT CLERK: Dr. Parnell who assisted with retraction. ANESTHESIA: General. INDICATIONS FOR PROCEDURE: The patient is a 75-year-old woman who was noted on to have a suspicious density in the lower outer quadrant of the right breast. Core needle biopsy confirmed carcinoma, and she is now for a sentinel node biopsy with right partial mastectomy using needle localization. DESCRIPTION OF PROCEDURE: The patient presented on the day of surgery and was sent to the x-ray department where she underwent lymphoscintigraphy as well as placement of a localizing wire to identify the site of her malignancy. She was returned to the preoperative area and then taken to the operating room. The patient was placed under general endotracheal anesthesia. Inspection of her lymphoscintigraphy film showed two nodes identified in the axilla. The right breast and axilla were inspected with the Neoprobe and a hot spot was identified in the upper mid axilla slightly below the hairline. The patient's right breast, axilla, chest wall and upper extremity were then prepped and draped in a sterile fashion. The localizing wire exited the lower outer quadrant of the breast extending toward the nipple. Attention was first turned to the sentinel node biopsy. The Neoprobe was used to inspect the axilla and the site of most counts was identified and marked with a skin marker. An approximately 2-1/2 to 3 cm transverse skin incision was made. This was deepened through the subcutaneous tissues using the cautery. Retractors were placed. The axillary fascia was opened and dissection proceeded, guided by the Neoprobe down into the axillary tissues. With careful dissection, a single node was identified about a centimeter in diameter surrounded by some fibrofatty tissue. This was excised. After removal, this was inspected with the Neoprobe and three 10-second counts were obtained with the average being approximately 4300. Inspection of the axilla identified another hot spot close to the site of the previous node. With careful dissection, another node was removed and two 10-second counts were obtained that were very close with an average approximately 3850 counts. These two nodes were labeled sentinel node one and sentinel node two and were sent for frozen section. Reinspection of the axilla with the Neoprobe revealed no other significant gamma activity within the axilla. I would note that prior to the prep of the breast, several aliquots of half to 1 mL of methylene blue were infiltrated into the lower outer quadrant of the breast and subcutaneously around the areola. While awaiting the sentinel node frozen section report, I proceeded with the partial mastectomy. A skin marker was used to outline a radially oriented ellipse surrounding the localizing wire. An incision approximately 6-7 cm in length was made and an ellipse of skin about a centimeter wide was excised around the guidewire. Dissection proceeded using the electrocautery to divide the tissues. Care was taken to take a nice margin of tissue on all sides of the guidewire and to follow the course of the wire toward the central aspect of the breast. Dissection proceeded until the ellipse was dissected beyond the anticipated tip of the wire. Dissection was carried out down to the underlying pectoral fascia. The removed specimen was approximately 7 cm in length x 4 cm x 5 cm. The frozen section report from the pathologist was called back that no tumor was seen in either of the nodes on frozen section. The partial mastectomy specimen was then marked using the Vector margin marker set to identify all surfaces of the specimen. This was then inspected using the [email or web address] device to obtain two x-rays at 90 degree angles. The imaging showed the guidewire and marker clip in close approximation within the center of the specimen on both views. This was then sent for permanent pathology. The wound was inspected and hemostasis was ensured. The breast tissue was elevated on both sides of the excision extending beneath the breast at the level of the pectoral fascia to mobilize the tissue so that this could be closed to fill in the defect. Once the breast tissue had been adequately mobilized, the breast tissue was approximated with several deep sutures of #2-0 Vicryl. The more superficial tissues were then closed in another layer with #2-0 Vicryl. The skin edges were approximated with multiple buried #3-0 Vicryl sutures. The skin edges were then approximated with a running subcuticular #4-0 Vicryl and Steri-Strips. Some additional 0.25% Marcaine had been infiltrated along the edges of the wound. A nice closure was achieved. After changing gloves, the sentinel node biopsy site was closed with one suture of #3-0 Vicryl in the axillary fascia, and the skin edges were approximated with a running subcuticular #4-0 Vicryl and . The patient tolerated the procedure well without apparent . A bulky bandage was applied. The patient was awakened and extubated and transported to the recovery room in stable condition.
== END | disposition home or self-care (01) ==
LOC: M SDC 09:28
PROVIDERS: ATTEND Surgery
DX: D05.11 Intraductal carcinoma in situ of right breast (principal); I42.0 Dilated cardiomyopathy; I11.9 Hypertensive heart disease without heart failure; E88.81 Metabolic syndrome and other insulin resistance; K21.9 Gastro-esophageal reflux disease without esophagitis; E78.00 Pure hypercholesterolemia, unspecified; K44.9 Diaphragmatic hernia without obstruction or gangrene; I25.2 Old myocardial infarction; M19.90 Unspecified osteoarthritis, unspecified site; R32 Unspecified urinary incontinence; Z87.891 Personal history of nicotine dependence; Z85.3 Personal history of malignant neoplasm of breast; Z79.899 Other long term (current) drug therapy; Z79.82 Long term (current) use of aspirin; Z92.3 Personal history of irradiation
CPT/HCPCS: 19301; 38525; 72265; 76098; 78195; 88307; 88331; 88342; A9541; J1100; J1170; J2250; J2405; J2710; J2765; J3010; Q9968